=== PATIENT | male | born 1955 | race Caucasian/White ===

== ENCOUNTER 2017-02-20 10:39 | Inpatient (IN) | payer BC ==
[2017-02-20] MEDS ORDERED: Sodium Chloride 0.9% 1,000 ML IV ONE ×2 (10:57→12:52)
[2017-02-20] MEDS ORDERED: Acetaminophen 500 MG Tab PO ONE ×4 (10:57→20:15)
[2017-02-20] MEDS ORDERED: HYDROmorphone 1 MG/ML Syringe IVPUSH ONE (11:15)
[2017-02-20] MEDS ORDERED: Ondansetron 4 MG/2 ML SDV IVPUSH ONE (11:15)
--- NOTE | 2017-02-20 11:15 | EDM.PDOC ---
Addendum entered and electronically signed by Bennett Herbert PA 02/20/17 12:46 : please use ER note as admission H and P Original Note: ED HPI GENERAL MEDICAL PROBLEM - General Chief Complaint: General Stated Complaint: FEVERS Time Seen by Provider: 02/20/17 11:00 Source of Information: Reports: Patient History Limitations: Reports: No Limitations - History of Present Illness INITIAL COMMENTS - FREE TEXT/NARRATIVE: 61 YO WM presents to ER with fever x 2 days, and elevated blood sugar in the 400s. Pt reports these symptoms began yesterday. Pt denies any chest pain, shortness of breath, dysuria, nausea/vomiting, headache or neck pain. Pt complains of right shoulder pain secondary to a torn rotator cuff that he's scheduled to have surgery on 02/23/2017. Pt also complains of chronic mid back pain which he reports is secondary to spinal stenosis which was revealed from MRI 2 weeks ago. SaO2 in ER was 88% on RA Onset Date: 02/19/17 Duration: Day(s): (2) Location: Reports: Back, Upper Extremity, Right Quality: Reports: Ache Severity: Moderate Improves with: Reports: Rest Worsens with: Reports: Movement Associated Symptoms: Reports: Fever/Chills. Denies: Chest Pain, Cough, cough w sputum, Diaphoresis, Headaches, Nausea/Vomiting, Rash, Shortness of Breath, Syncope Right Shoulder Pain Score (Numeric/FACES): 10 - Related Data Allergies Allergy/AdvReac Type Severity Reaction Status Date / Time No Known Drug Allergies Allergy Other Verified 02/15/17 13:39 Home Meds: Home Meds Aspirin [Lo-Dose Aspirin EC] 81 mg PO DAILY 02/15/17 [History] Losartan Potassium 50 mg PO DAILY 02/15/17 [History] Sildenafil Citrate [Sildenafil] 50 mg PO ASDIRECTED 02/15/17 [History] atorvaSTATin [Lipitor] 40 mg PO BEDTIME 02/15/17 [History] metFORMIN [Glucophage XR] 1,000 mg PO BID 02/15/17 [History] Docusate Sodium 200 mg PO DAILY 02/20/17 [History] Hydrocodone/Acetaminophen [Hydrocodon-Acetaminoph 7.5-325] 1 each PO Q6H PRN [History] Multivitamin [Multiple Vitamins] 1 each PO DAILY 02/20/17 [History] ED ROS GENERAL - Review of Systems Review Of Systems: See Below Constitutional: Reports: Fever, Chills, Decreased Appetite HEENT: Reports: No Symptoms Respiratory: Reports: No Symptoms Cardiovascular: Reports: No Symptoms Endocrine: Reports: No Symptoms GI/Abdominal: Reports: No Symptoms : Reports: No Symptoms Musculoskeletal: Reports: Shoulder Pain, Back Pain Skin: Reports: No Symptoms Neurological: Reports: No Symptoms Psychiatric: Reports: No Symptoms Hematologic/Lymphatic: Reports: No Symptoms Immunologic: Reports: No Symptoms ED EXAM, GENERAL - Physical Exam Exam: See Below Exam Limited By: No Limitations General Appearance: Alert, WD/WN, No Apparent Distress Ears: Normal External Exam, Normal Canal, Hearing Grossly Normal, Normal TMs Nose: Normal Inspection, Normal Mucosa, No Blood Throat/Mouth: Normal Inspection, Normal Lips, Normal Teeth, Normal Gums, Normal Oropharynx, Normal Voice, No Airway Compromise Head: Atraumatic, Normocephalic Neck: Normal Inspection, Supple, Non-Tender, Full Range of Motion Respiratory/Chest: No Respiratory Distress, Lungs Clear, Normal Breath Sounds, No Accessory Muscle Use, Chest Non-Tender Cardiovascular: Normal Peripheral Pulses, Regular Rate, Rhythm, No Edema, No Gallop, No JVD, No Murmur, No Rub GI/Abdominal: Normal Bowel Sounds, Soft, Non-Tender, No Organomegaly, No Distention, No Abnormal Bruit, No Mass Back Exam: Muscle Spasm, Paraspinal Tenderness Extremities: Normal Inspection, Normal Range of Motion, Non-Tender, Normal Capillary Refill, No Pedal Edema Neurological: Alert, Oriented, CN II-XII Intact, Normal Cognition, Normal Gait, Normal Reflexes, No Motor/Sensory Deficits Psychiatric: Normal Affect, Normal Mood Course - Vital Signs Last Recorded V/S: Last Vital Signs Temp 39.6 C H 02/20/17 11:20 Pulse 109 H 02/20/17 10:59 Resp 18 02/20/17 10:59 BP 146/74 H 02/20/17 10:59 Pulse Ox 88 L 02/20/17 10:59 - Orders/Labs/Meds Orders: Active Orders 24 hr Category Date Time Status Blood Glucose Check, Bedside [RC] ONETIME Care 02/20/17 12:32 Active Chest 2V [CR] Stat Exams 02/20/17 10:55 Taken CULTURE BLOOD [BC] Stat Lab 02/20/17 10:47 Received CULTURE BLOOD [BC] Stat Lab 02/20/17 11:15 Received UA W/MICROSCOPIC [URIN] Stat Lab 02/20/17 10:57 Uncollected Blood Culture x2 Reflex Set [OM.PC] Stat Oth 02/20/17 10:57 Ordered Labs: Laboratory Tests 02/20/17 02/20/17 02/20/17 Range/Units 10:47 10:47 11:15 WBC 14.5 H (5.0-10.0) 10^3/uL RBC 3.51 L (4.50-6.00) 10^6/uL Hgb 10.5 L (13.0-17.0) g/dL Hct 30.7 L (40.0-52.0) % MCV 87.4 (82.0-92.0) fL MCH 29.9 (27.0-31.0) pg MCHC 34.2 (32.0-36.0) g/dL RDW 13.0 (11.5-14.5) % Plt Count 220 (150-300) 10^3/uL MPV 8.7 (7.4-10.4) fL Neut % (Auto) 93.3 H (50.0-70.0) % Lymph % (Auto) 2.7 L (20.0-40.0) % Linn % (Auto) 4.0 (2.0-8.0) % Eos % (Auto) 0.0 L (1.0-3.0) % Baso % (Auto) 0.0 (0.0-1.0) % Neut # (Auto) 13.5 H (2.5-7.0) 10^3/uL Lymph # (Auto) 0.4 L (1.0-4.0) 10^3/uL Linn # (Auto) 0.6 (0.1-0.8) 10^3/uL Eos # (Auto) 0.0 L (0.1-0.3) 10^3/uL Baso # (Auto) 0.0 (0.0-0.1) 10^3/uL VBG pH 7.44 H (7.31-7.41) VBG pCO2 31 L (41-51) mmHG VBG pO2 32 mmHG VBG HCO3 21 L (23-28) mmol/L VBG Total CO2 22 mmol/L VBG O2 Saturation 65 % VBG Base Excess -3 L ((-2)-3) mmol/L O2 Delivery Device Room air Sodium 121 L (136-145) mmol/L Potassium 4.7 (3.3-5.3) mmol/L Chloride 86 L* (98-115) mmol/L Carbon Dioxide 24.2 (21.0-32.0) mmol/L BUN 38 H (6-25) mg/dL Creatinine 1.44 H (0.51-1.17) mg/dL Est Cr Clr Drug Dosing 57.63 mL/min Estimated GFR (MDRD) 50 mL/min Glucose 476 H (70-110) mg/dL POC Glucose (74-106) mg/dl Lactic Acid (0.4-2.0) mmol/L Calcium 8.8 (8.7-10.3) mg/dL Total Bilirubin 1.2 H (0.2-1.0) mg/dL AST 142 H (15-37) U/L ALT 140 H (12-78) U/L Alkaline Phosphatase 131 H (46-116) IU/L Total Protein 8.0 (6.4-8.2) g/dL Albumin 2.51 L (3.00-4.80) g/dL 02/20/17 02/20/17 Range/Units 11:53 12:29 WBC (5.0-10.0) 10^3/uL RBC (4.50-6.00) 10^6/uL Hgb (13.0-17.0) g/dL Hct (40.0-52.0) % MCV (82.0-92.0) fL MCH (27.0-31.0) pg MCHC (32.0-36.0) g/dL RDW (11.5-14.5) % Plt Count (150-300) 10^3/uL MPV (7.4-10.4) fL Neut % (Auto) (50.0-70.0) % Lymph % (Auto) (20.0-40.0) % Linn % (Auto) (2.0-8.0) % Eos % (Auto) (1.0-3.0) % Baso % (Auto) (0.0-1.0) % Neut # (Auto) (2.5-7.0) 10^3/uL Lymph # (Auto) (1.0-4.0) 10^3/uL Linn # (Auto) (0.1-0.8) 10^3/uL Eos # (Auto) (0.1-0.3) 10^3/uL Baso # (Auto) (0.0-0.1) 10^3/uL VBG pH (7.31-7.41) VBG pCO2 (41-51) mmHG VBG pO2 mmHG VBG HCO3 (23-28) mmol/L VBG Total CO2 mmol/L VBG O2 Saturation % VBG Base Excess ((-2)-3) mmol/L O2 Delivery Device Sodium (136-145) mmol/L Potassium (3.3-5.3) mmol/L Chloride (98-115) mmol/L Carbon Dioxide (21.0-32.0) mmol/L BUN (6-25) mg/dL Creatinine (0.51-1.17) mg/dL Est Cr Clr Drug Dosing mL/min Estimated GFR (MDRD) mL/min Glucose (70-110) mg/dL POC Glucose 442 H (74-106) mg/dl Lactic Acid 2.5 H (0.4-2.0) mmol/L Calcium (8.7-10.3) mg/dL Total Bilirubin (0.2-1.0) mg/dL AST (15-37) U/L ALT (12-78) U/L Alkaline Phosphatase (46-116) IU/L Total Protein (6.4-8.2) g/dL Albumin (3.00-4.80) g/dL Meds: Medications Discontinued Medications Generic Name Dose Route Start Last Admin Trade Name Freq PRN Reason Stop Dose Admin Acetaminophen 1,000 mg 02/20/17 10:57 02/20/17 10:50 Tylenol Extra Strength PO 02/20/17 10:58 1,000 mg ONETIME ONE Administration Hydromorphone HCl 1 mg 02/20/17 11:15 02/20/17 11:40 Dilaudid IVPUSH 02/20/17 11:16 1 mg ONETIME ONE Administration Sodium Chloride 1,000 mls @ 999 mls/hr 02/20/17 10:57 02/20/17 10:50 Normal Saline IV 02/20/17 11:57 999 mls/hr .BOLUS ONE Administration Ondansetron HCl 4 mg 02/20/17 11:15 02/20/17 11:40 Zofran IVPUSH 02/20/17 11:16 4 mg ONETIME ONE Administration - Radiology Interpretation Free Text/Narrative:: CXR- Left lower lobe infiltrate Departure - Departure Time of Disposition: 12:44 Disposition: Admitted As Inpatient 64 Condition: Serious Clinical Impression: Hyperglycemia without ketosis, Hyponatremia, Hypochloremia Pneumonia Qualifiers: Pneumonia type: due to unspecified organism Laterality: left Lung location: lower lobe of lung Qualified Code(s): J18.1 - Lobar pneumonia, unspecified organism Sepsis Qualifiers: Sepsis type: sepsis due to unspecified organism Qualified Code(s): A41.9 - Sepsis, unspecified organism - Discharge Information - My Orders Last 24 Hours: My Active Orders 02/20/17 10:47 CULTURE BLOOD [BC] Stat 02/20/17 10:55 Chest 2V [CR] Stat 02/20/17 10:57 UA W/MICROSCOPIC [URIN] Stat Blood Culture x2 Reflex Set [OM.PC] Stat 02/20/17 11:15 CULTURE BLOOD [BC] Stat 02/20/17 12:32 Blood Glucose Check, Bedside [RC] ONETIME - Assessment/Plan Last 24 Hours: My Active Orders 02/20/17 10:47 CULTURE BLOOD [BC] Stat 02/20/17 10:55 Chest 2V [CR] Stat 02/20/17 10:57 UA W/MICROSCOPIC [URIN] Stat Blood Culture x2 Reflex Set [OM.PC] Stat 02/20/17 11:15 CULTURE BLOOD [BC] Stat 02/20/17 12:32 Blood Glucose Check, Bedside [RC] ONETIME Assessment:: 1. LLL pneumonia 2. elevated LFT 3.hyperosmolar hyperglycemia 4. early sepsis 5. hyponatremia 6. hypocholemia Plan: 1. discussed case with Dr Berman who will admit to her service 2. zosyn/vancomycin 3. sputum cultures 4. repeat lactic acid in am 5. cbc/cmp in am 6. updraft treatments 7. fluid hydration 8. insulin sliding scale
[2017-02-20 11:22] LABS: O2 DELIVERY DEVICE ROOM AIR
[2017-02-20 11:25] LABS: BASE EXCESS VENOUS -3 mmol/L ((-2)-3); BICARBONATE,VENOUS 21 mmol/L (23-28); O2 SATURATION VENOUS 65 %; PCO2 VENOUS 31 mmHG (41-51); PH,VENOUS 7.44 (7.31-7.41); PO2 VENOUS 32 mmHG
[2017-02-20] MEDS ORDERED: Sodium Chloride 0.9% 5 ML Syringe FLUSH PRN (12:48)
[2017-02-20] MEDS ORDERED: Albuterol/Ipratropium 3.0-0.5 MG/3 ML Neb Soln NEB PRN (12:48)
[2017-02-20] MEDS ORDERED: Ondansetron 4 MG/2 ML SDV IV PRN (12:48)
[2017-02-20] MEDS ORDERED: Acetaminophen 500 MG Tab PO PRN (12:52)
[2017-02-20] MEDS ORDERED: Piperacillin/Tazobactam 4.5 GM in Sodium Chloride 0.9% 100 ML IV SCH (13:00)
[2017-02-20] MEDS ORDERED: Sodium Chloride 0.9% 1,000 ML IV SCH (13:00)
[2017-02-20] MEDS ORDERED: Insulin Regular, Human 100 Units/ML 10 ML Vial SUBCUT ONE ×2 (14:30→21:55)
[2017-02-20] MEDS: Piperacillin/Tazobactam/Dext 3.375 GM in Premix Bag 1 BAG IV SCH ×3 (14:55→22:00)
[2017-02-20] MEDS: HYDROmorphone 2 MG/ML SDV IVPUSH PRN (17:23)
[2017-02-20] MEDS: Insulin Regular, Human 100 Units/ML 10 ML Vial SUBCUT SCH ×3 (18:30→21:45)
[2017-02-20] MEDS ORDERED: Insulin Regular, Human 100 Units/ML 10 ML Vial IVPUSH ONE (18:40)
[2017-02-20] MEDS ORDERED: Ibuprofen 600 MG Tab PO SCH (21:00)
[2017-02-20] MEDS: Ibuprofen 600 MG Tab PO SCH (21:02)
[2017-02-20] MEDS: Acetaminophen 500 MG Tab PO SCH (23:54)
[2017-02-20] MEDS: Sodium Chloride 0.9% 1,000 ML IV SCH (23:59)
[2017-02-21] MEDS: Piperacillin/Tazobactam/Dext 3.375 GM in Premix Bag 1 BAG IV SCH ×2 (02:50→08:56)
[2017-02-21] MEDS: Ibuprofen 600 MG Tab PO SCH ×3 (02:51→18:43)
[2017-02-21] MEDS ORDERED: Ibuprofen 600 MG Tab PO SCH (03:00)
[2017-02-21] MEDS ORDERED: Acetaminophen 500 MG Tab PO SCH ×2 (06:00)
[2017-02-21] MEDS: Acetaminophen 500 MG Tab PO SCH ×2 (06:38→11:50)
[2017-02-21] MEDS: Insulin Regular, Human 100 Units/ML 10 ML Vial SUBCUT SCH ×5 (07:50→22:55)
--- NOTE | 2017-02-21 09:04 | PCM.PN ---
- General Info Date of Service: 02/21/17 Admission Dx/Problem (Free Text): Pneumonia with sepsis. - Review of Systems Systems Review Comment:: Willie is seen today on inpatient rounds. He was admitted yesterday with LLL pneumonia with sepsis and hyperglycemia. He is known to be a diabetic. He started not feeling well on 02/19/17 with a fever of 102.5 at home. They contacted his PCP and she recommended he go in to the ER for evaluation. He was asymptomatic, largely, with the exception of some back and right shoulder pain and he has a known rotator cuff tear. He was actually supposed to have that repaired on 02/23/[address] Hunter at [facility]. While in the ER he was noted to have a temp of 102.5 with leukocytosis of 14.5 with a left shift. He had no cough but CXR was positive for LLL infiltrate. Blood cultures have been drawn and he has gram positive cocci growing in anaerobic and aerobic bottles both. He is in vancomycin and zosyn. His lactate in ER was noted to be 2.5 (ULN 2.0) but BP was stable and pulse was stable to it was felt he would be able to stay locally in the hospital rather than being transferred out. He wants to go home today stating "I"m fine". He has, however, noticed that he has some blistering lesions on his lower lip that just showed up. He has no pain with them. He has never had anything like that happen before. - Patient Data Vitals - Most Recent: Last Vital Signs Temp 96.9 F 02/21/17 07:00 Pulse 84 02/21/17 07:00 Resp 16 02/21/17 07:00 BP 114/73 02/21/17 07:00 Pulse Ox 94 L 02/21/17 07:45 Weight - Most Recent: 208 lb 9.6 oz I&O - Last 24 Hours: Intake & Output 02/20/17 02/21/17 02/21/17 22:59 06:59 14:59 Intake Total 2862 1284 Output Total 1400 400 Balance 1462 884 Lab Results Last 24 Hours: Laboratory Results - last 24 hr 02/20/17 02/20/17 02/20/17 Range/Units 14:21 16:19 18:10 WBC (5.0-10.0) 10^3/uL RBC (4.50-6.00) 10^6/uL Hgb (13.0-17.0) g/dL Hct (40.0-52.0) % MCV (82.0-92.0) fL MCH (27.0-31.0) pg MCHC (32.0-36.0) g/dL RDW (11.5-14.5) % Plt Count (150-300) 10^3/uL MPV (7.4-10.4) fL Neut % (Auto) (50.0-70.0) % Lymph % (Auto) (20.0-40.0) % [place] % (Auto) (2.0-8.0) % Eos % (Auto) (1.0-3.0) % Baso % (Auto) (0.0-1.0) % Neut # (Auto) (2.5-7.0) 10^3/uL Lymph # (Auto) (1.0-4.0) 10^3/uL [place] # (Auto) (0.1-0.8) 10^3/uL Eos # (Auto) (0.1-0.3) 10^3/uL Baso # (Auto) (0.0-0.1) 10^3/uL Sodium (136-145) mmol/L Potassium (3.3-5.3) mmol/L Chloride (98-115) mmol/L Carbon Dioxide (21.0-32.0) mmol/L BUN (6-25) mg/dL Creatinine (0.51-1.17) mg/dL Est Cr Clr Drug Dosing mL/min Estimated GFR (MDRD) mL/min Glucose (70-110) mg/dL POC Glucose 425 H 409 H 427 H (74-106) mg/dl Lactic Acid (0.4-2.0) mmol/L Calcium (8.7-10.3) mg/dL Total Bilirubin (0.2-1.0) mg/dL AST (15-37) U/L ALT (12-78) U/L Alkaline Phosphatase (46-116) IU/L Total Protein (6.4-8.2) g/dL Albumin (3.00-4.80) g/dL 02/20/17 02/20/17 02/20/17 Range/Units 19:49 21:07 23:53 WBC (5.0-10.0) 10^3/uL RBC (4.50-6.00) 10^6/uL Hgb (13.0-17.0) g/dL Hct (40.0-52.0) % MCV (82.0-92.0) fL MCH (27.0-31.0) pg MCHC (32.0-36.0) g/dL RDW (11.5-14.5) % Plt Count (150-300) 10^3/uL MPV (7.4-10.4) fL Neut % (Auto) (50.0-70.0) % Lymph % (Auto) (20.0-40.0) % Pinal % (Auto) (2.0-8.0) % Eos % (Auto) (1.0-3.0) % Baso % (Auto) (0.0-1.0) % Neut # (Auto) (2.5-7.0) 10^3/uL Lymph # (Auto) (1.0-4.0) 10^3/uL Pinal # (Auto) (0.1-0.8) 10^3/uL Eos # (Auto) (0.1-0.3) 10^3/uL Baso # (Auto) (0.0-0.1) 10^3/uL Sodium (136-145) mmol/L Potassium (3.3-5.3) mmol/L Chloride (98-115) mmol/L Carbon Dioxide (21.0-32.0) mmol/L BUN (6-25) mg/dL Creatinine (0.51-1.17) mg/dL Est Cr Clr Drug Dosing mL/min Estimated GFR (MDRD) mL/min Glucose (70-110) mg/dL POC Glucose 319 H 288 H 299 H (74-106) mg/dl Lactic Acid (0.4-2.0) mmol/L Calcium (8.7-10.3) mg/dL Total Bilirubin (0.2-1.0) mg/dL AST (15-37) U/L ALT (12-78) U/L Alkaline Phosphatase (46-116) IU/L Total Protein (6.4-8.2) g/dL Albumin (3.00-4.80) g/dL 02/21/17 02/21/17 02/21/17 Range/Units 06:37 07:27 07:27 WBC 9.6 (5.0-10.0) 10^3/uL RBC 3.12 L (4.50-6.00) 10^6/uL Hgb 9.5 L (13.0-17.0) g/dL Hct 27.6 L (40.0-52.0) % MCV 88.6 (82.0-92.0) fL MCH 30.5 (27.0-31.0) pg MCHC 34.4 (32.0-36.0) g/dL RDW 12.8 (11.5-14.5) % Plt Count 180 (150-300) 10^3/uL MPV 8.4 (7.4-10.4) fL Neut % (Auto) 90.8 H (50.0-70.0) % Lymph % (Auto) 4.6 L (20.0-40.0) % Pinal % (Auto) 3.5 (2.0-8.0) % Eos % (Auto) 0.3 L (1.0-3.0) % Baso % (Auto) 0.8 (0.0-1.0) % Neut # (Auto) 8.8 H (2.5-7.0) 10^3/uL Lymph # (Auto) 0.4 L (1.0-4.0) 10^3/uL Pinal # (Auto) 0.3 (0.1-0.8) 10^3/uL Eos # (Auto) 0.0 L (0.1-0.3) 10^3/uL Baso # (Auto) 0.1 (0.0-0.1) 10^3/uL Sodium 128 L (136-145) mmol/L Potassium 3.9 (3.3-5.3) mmol/L Chloride 95 L (98-115) mmol/L Carbon Dioxide 22.2 (21.0-32.0) mmol/L BUN 40 H (6-25) mg/dL Creatinine 1.41 H (0.51-1.17) mg/dL Est Cr Clr Drug Dosing 58.86 mL/min Estimated GFR (MDRD) 51 mL/min Glucose 333 H (70-110) mg/dL POC Glucose 307 H (74-106) mg/dl Lactic Acid (0.4-2.0) mmol/L Calcium 8.0 L (8.7-10.3) mg/dL Total Bilirubin 1.0 (0.2-1.0) mg/dL AST 132 H (15-37) U/L ALT 131 H (12-78) U/L Alkaline Phosphatase 115 (46-116) IU/L Total Protein 6.3 L (6.4-8.2) g/dL Albumin 1.80 L (3.00-4.80) g/dL 02/21/17 Range/Units 07:27 WBC (5.0-10.0) 10^3/uL RBC (4.50-6.00) 10^6/uL Hgb (13.0-17.0) g/dL Hct (40.0-52.0) % MCV (82.0-92.0) fL MCH (27.0-31.0) pg MCHC (32.0-36.0) g/dL RDW (11.5-14.5) % Plt Count (150-300) 10^3/uL MPV (7.4-10.4) fL Neut % (Auto) (50.0-70.0) % Lymph % (Auto) (20.0-40.0) % Pinal % (Auto) (2.0-8.0) % Eos % (Auto) (1.0-3.0) % Baso % (Auto) (0.0-1.0) % Neut # (Auto) (2.5-7.0) 10^3/uL Lymph # (Auto) (1.0-4.0) 10^3/uL Pinal # (Auto) (0.1-0.8) 10^3/uL Eos # (Auto) (0.1-0.3) 10^3/uL Baso # (Auto) (0.0-0.1) 10^3/uL Sodium (136-145) mmol/L Potassium (3.3-5.3) mmol/L Chloride (98-115) mmol/L Carbon Dioxide (21.0-32.0) mmol/L BUN (6-25) mg/dL Creatinine (0.51-1.17) mg/dL Est Cr Clr Drug Dosing mL/min Estimated GFR (MDRD) mL/min Glucose (70-110) mg/dL POC Glucose (74-106) mg/dl Lactic Acid 1.6 (0.4-2.0) mmol/L Calcium (8.7-10.3) mg/dL Total Bilirubin (0.2-1.0) mg/dL AST (15-37) U/L ALT (12-78) U/L Alkaline Phosphatase (46-116) IU/L Total Protein (6.4-8.2) g/dL Albumin (3.00-4.80) g/dL Med Orders - Current: Current Medications Acetaminophen (Tylenol Extra Strength) 1,000 mg PO Q6H [facility] Last Admin: 02/21/17 06:38 Dose: 1,000 mg Albuterol/Ipratropium (Duoneb 3.0-0.5 Mg/3 Ml) 3 ml NEB Q4H PRN PRN Reason: Shortness Of Breath/wheezing Hydromorphone HCl (Dilaudid) 0.5 mg IVPUSH Q2H PRN PRN Reason: Pain (severe 7-10) Last Admin: 02/20/17 17:23 Dose: 0.5 mg Sodium Chloride (Normal Saline) 1,000 mls @ 125 mls/hr IV ASDIRECTED [facility] Last Admin: 02/20/17 23:59 Dose: 150 mls/hr Piperacillin/Tazobactam/ (Dextrose 3.375 gm/ Premix) 50 mls @ 100 mls/hr IV Q6H [facility] Last Admin: 02/21/17 08:56 Dose: 100 mls/hr Vancomycin HCl 1.25 gm/ Sodium (Chloride) 250 mls @ 166.667 mls/hr IV Q12H [facility] Last Admin: 02/21/17 03:49 Dose: 166.667 mls/hr Ibuprofen (Motrin) 600 mg PO Q6H [facility] Last Admin: 02/21/17 08:56 Dose: 600 mg Insulin Human Regular (Novolin R) 0 unit SUBCUT 0730,1200,1800,2100 TIM PRN Reason: Protocol Last Admin: 02/21/17 07:50 Dose: 4 unit Ondansetron HCl (Zofran) 4 mg IV Q6H PRN PRN Reason: Nausea/Vomiting Sodium Chloride (Syrex Flush) 5 ml FLUSH Q8HR PRN PRN Reason: Keep Vein Open Valacyclovir HCl (Valtrex) 1,000 mg PO BID [facility] Stop: 02/21/17 23:59 Vancomycin HCl (Pharmacy To Dose - Vancomycin) 1 dose .XX ASDIRECTED [facility] Discontinued Medications Acetaminophen (Tylenol Extra Strength) 1,000 mg PO ONETIME ONE Stop: 02/20/17 10:58 Last Admin: 02/20/17 10:50 Dose: 1,000 mg Acetaminophen (Tylenol Extra Strength) 1,000 mg PO Q6H PRN PRN Reason: Fever Last Admin: 02/20/17 18:20 Dose: 1,000 mg Acetaminophen (Tylenol Extra Strength) 1,000 mg PO ONETIME ONE Stop: 02/20/17 18:41 Last Admin: 02/20/17 20:25 Dose: Not Given Hydromorphone HCl (Dilaudid) 1 mg IVPUSH ONETIME ONE Stop: 02/20/17 11:16 Last Admin: 02/20/17 11:40 Dose: 1 mg Sodium Chloride (Normal Saline) 1,000 mls @ 999 mls/hr IV .BOLUS ONE Stop: 02/20/17 11:57 Last Admin: 02/20/17 10:50 Dose: 999 mls/hr Sodium Chloride (Normal Saline) 1,000 mls @ 125 mls/hr IV ASDIRECTED [facility] Stop: 02/20/17 18:30 Last Admin: 02/20/17 14:25 Dose: 125 mls/hr Sodium Chloride (Normal Saline) 1,000 mls @ 999 mls/hr IV .BOLUS ONE Stop: 02/20/17 13:52 Last Admin: 02/20/17 13:15 Dose: 999 mls/hr Vancomycin HCl 1 gm/ Sodium (Chloride) 250 mls @ 167 mls/hr IV Q24H [facility] Last Admin: 02/20/17 16:09 Dose: 167 mls/hr Piperacillin/Tazobactam/ (Dextrose 3.375 gm/ Premix) 50 mls @ 100 mls/hr IV Q6H [facility] Last Admin: 02/20/17 21:13 Dose: Not Given Ibuprofen (Motrin) 600 mg PO TID@0900,1500,2100 TIM Insulin Human Regular (Novolin R) 1 unit SUBCUT WITHMEALSANDBED TIM PRN Reason: Protocol Stop: 02/21/17 00:43 Last Admin: 02/21/17 00:00 Dose: 3 unit Insulin Human Regular (Novolin R) 12 unit SUBCUT ONETIME ONE PRN Reason: Protocol Stop: 02/20/17 14:31 Last Admin: 02/20/17 14:50 Dose: 12 unit Insulin Human Regular (Novolin R) 12 unit IVPUSH ONETIME ONE PRN Reason: Protocol Stop: 02/20/17 18:41 Last Admin: 02/20/17 20:25 Dose: Not Given Insulin Human Regular (Novolin R) 4 unit SUBCUT ONETIME ONE PRN Reason: Protocol Stop: 02/20/17 21:56 Last Admin: 02/20/17 22:18 Dose: 3 unit Ondansetron HCl (Zofran) 4 mg IVPUSH ONETIME ONE Stop: 02/20/17 11:16 Last Admin: 02/20/17 11:40 Dose: 4 mg - Exam General: Alert, Oriented, Cooperative HEENT: Other (He has clustered blistering lesions on his left lower lip, on the lip and below it as well.) Lungs: Normal Respiratory Effort, Rales (LLL) Cardiovascular: Regular Rate, Regular Rhythm, No Murmurs GI/Abdominal Exam: Normal Bowel Sounds, Soft, Non-Tender, No Organomegaly Extremities: Normal Inspection, No Pedal Edema - Problem List & Annotations (1) Diabetes mellitus SNOMED Code(s): 79636638 Code(s): E11.9 - TYPE 2 DIABETES MELLITUS WITHOUT COMPLICATIONS Status: Acute Current Visit: Yes (2) Hyperglycemia without ketosis SNOMED Code(s): 58576963 Code(s): R73.9 - HYPERGLYCEMIA, UNSPECIFIED Status: Acute Current Visit: Yes (3) Hypochloremia SNOMED Code(s): 06530860 Code(s): E87.8 - OTH DISORDERS OF ELECTROLYTE AND FLUID BALANCE, NEC Status : Acute Current Visit: Yes (4) Hyponatremia SNOMED Code(s): 23662124 Code(s): E87.1 - HYPO-OSMOLALITY AND HYPONATREMIA Status: Acute Current Visit: Yes (5) Pneumonia SNOMED Code(s): 682781375 Code(s): J18.9 - PNEUMONIA, UNSPECIFIED ORGANISM Status: Acute Current Visit: Yes Qualifiers: Pneumonia type: due to unspecified organism Laterality: left Lung location: lower lobe of lung Qualified Code(s): J18.1 - Lobar pneumonia, unspecified organism (6) Sepsis SNOMED Code(s): 69937640 Code(s): A41.9 - SEPSIS, UNSPECIFIED ORGANISM Status: Acute Current Visit : Yes Qualifiers: Sepsis type: sepsis due to unspecified organism Qualified Code(s): A41.9 - Sepsis, unspecified organism (7) Cold sore SNOMED Code(s): 5816996 Code(s): B00.1 - HERPESVIRAL VESICULAR DERMATITIS Status: Acute Current Visit: Yes - Problem List Review Problem List Initiated/Reviewed/Updated: Yes - My Orders Last 24 Hours: My Active Orders 02/21/17 09:30 valACYclovir [Valtrex] 1,000 mg PO BID - Plan Plan:: Continue on broad spectrum antibiotics of vancomycin and zosyn until blood culture results are available. Decrease IVF's to 125 cc per hour from 150 cc per hour. Start valacyclovir 1,000 mg PO BID x 2 doses today for the herpes. Continue with insulin per sliding scale for his BG's. Sodium and chloride improved in the past 24 hours with IVF's and will continue on those. Daily labs of CBC, CMP with lactic acid repeated tomorrow and if stable will not need to recheck.
[2017-02-21] MEDS: Sodium Chloride 0.9% 1,000 ML IV SCH ×2 (09:09→17:46)
[2017-02-21] MEDS ORDERED: valACYclovir 500 MG Tab PO SCH (09:30)
[2017-02-21] MEDS: valACYclovir 500 MG Tab PO SCH ×2 (11:42→21:24)
[2017-02-21] MEDS ORDERED: Ibuprofen 600 MG Tab PO PRN (15:12)
[2017-02-21] MEDS: Piperacillin/Tazobactam 3.375 GM in Sodium Chloride 0.9% 50 ML IV SCH ×2 (17:56→22:48)
[2017-02-21] MEDS ORDERED: Acetaminophen 500 MG Tab PO PRN (18:00)
[2017-02-21] MEDS ORDERED: Acetaminophen 650 MG Tab.ER PO PRN (20:26)
[2017-02-21] MEDS ORDERED: Insulin Regular, Human 100 Units/ML 10 ML Vial SUBCUT ONE (21:18)
[2017-02-21] MEDS: oxyCODONE 5 MG Tab PO PRN (21:24)
[2017-02-22] MEDS: Insulin Regular, Human 100 Units/ML 10 ML Vial SUBCUT SCH ×6 (01:00→23:22)
[2017-02-22] MEDS: Sodium Chloride 0.9% 1,000 ML IV SCH ×2 (04:34→18:06)
[2017-02-22] MEDS: Piperacillin/Tazobactam 3.375 GM in Sodium Chloride 0.9% 50 ML IV SCH ×2 (04:34→11:11)
[2017-02-22] MEDS: Levothyroxine 75 MCG Tab PO SCH (06:09)
[2017-02-22 08:05] LABS: CHLORIDE,CL 100 mmol/L (98-115); SODIUM,NA 132 mmol/L (136-145)
[2017-02-22] MEDS: oxyCODONE 5 MG Tab PO PRN ×2 (08:12→16:23)
[2017-02-22] MEDS: Docusate Sodium 100 MG Cap PO SCH (08:16)
[2017-02-22] MEDS: Losartan 50 MG Tab PO SCH (08:16)
[2017-02-22] MEDS: Aspirin 81 MG Tab.EC PO SCH (08:16)
[2017-02-22] MEDS: Multivitamins with Minerals/Iron/Folic Acid/Lycopene Tab PO SCH (08:16)
[2017-02-22] MEDS: valACYclovir 500 MG Tab PO SCH (08:17)
--- NOTE | 2017-02-22 08:46 | PCM.PN ---
- General Info Date of Service: 02/22/17 Admission Dx/Problem (Free Text): Pneumonia with sepsis. - Review of Systems Systems Review Comment:: Willie is seen today on inpatient rounds. He was admitted on 02/20/17 with fever , LLL pneumonia, acute renal insufficiency with transaminitis, hyperglycemia, sepsis, hyponatremia and hypochloremia. Yesterday he had an episode of increased confusion and was seeing double in the afternoon so a CT head was obtained which was largely unremarkable. He states that resolved yesterday, today he feels a little dizzy. No N/V. The nurse is present this morning and notes his right arm is swollen and has some pitting edema but he has no erythema. He does have a torn rotator cuff in his right shoulder and also has the IV in his right hand but there is no evidence of infiltration. He feels constipated today and received colace x 2 this morning and drank 2 cups of prune juice. No urinary issues. He continues to have low back pain with radiation to his left leg. They are questioning if he could get a "cortisone shot" to help with the pain. He does have oxycodone PO and dilaudid IV PRN. He received oxycodone last evening before bed and again this morning. He has to request this, however, and he did not realize that, he thought he had something scheduled. - Patient Data Vitals - Most Recent: Last Vital Signs Temp 98.5 F 02/22/17 06:29 Pulse 88 02/22/17 06:45 Resp 18 02/22/17 06:45 BP 113/62 02/22/17 08:16 Pulse Ox 96 02/22/17 06:45 Weight - Most Recent: 208 lb 9.6 oz I&O - Last 24 Hours: Intake & Output 02/21/17 02/22/17 02/22/17 22:59 06:59 14:59 Intake Total 2330 1255 Balance 2330 1255 Lab Results Last 24 Hours: Laboratory Results - last 24 hr 02/21/17 02/21/17 02/21/17 Range/Units 11:49 18:00 20:53 WBC (5.0-10.0) 10^3/uL RBC (4.50-6.00) 10^6/uL Hgb (13.0-17.0) g/dL Hct (40.0-52.0) % MCV (82.0-92.0) fL MCH (27.0-31.0) pg MCHC (32.0-36.0) g/dL RDW (11.5-14.5) % Plt Count (150-300) 10^3/uL MPV (7.4-10.4) fL Neut % (Auto) (50.0-70.0) % Lymph % (Auto) (20.0-40.0) % [place] % (Auto) (2.0-8.0) % Eos % (Auto) (1.0-3.0) % Baso % (Auto) (0.0-1.0) % Neut # (Auto) (2.5-7.0) 10^3/uL Lymph # (Auto) (1.0-4.0) 10^3/uL [place] # (Auto) (0.1-0.8) 10^3/uL Eos # (Auto) (0.1-0.3) 10^3/uL Baso # (Auto) (0.0-0.1) 10^3/uL Sodium (136-145) mmol/L Potassium (3.3-5.3) mmol/L Chloride (98-115) mmol/L Carbon Dioxide (21.0-32.0) mmol/L BUN (6-25) mg/dL Creatinine (0.51-1.17) mg/dL Est Cr Clr Drug Dosing mL/min Estimated GFR (MDRD) mL/min Glucose (70-110) mg/dL POC Glucose 392 H 382 H 416 H (74-106) mg/dl Lactic Acid (0.4-2.0) mmol/L Calcium (8.7-10.3) mg/dL Total Bilirubin (0.2-1.0) mg/dL AST (15-37) U/L ALT (12-78) U/L Alkaline Phosphatase (46-116) IU/L Total Protein (6.4-8.2) g/dL Albumin (3.00-4.80) g/dL 02/21/17 02/22/17 02/22/17 Range/Units 22:41 04:35 06:22 WBC (5.0-10.0) 10^3/uL RBC (4.50-6.00) 10^6/uL Hgb (13.0-17.0) g/dL Hct (40.0-52.0) % MCV (82.0-92.0) fL MCH (27.0-31.0) pg MCHC (32.0-36.0) g/dL RDW (11.5-14.5) % Plt Count (150-300) 10^3/uL MPV (7.4-10.4) fL Neut % (Auto) (50.0-70.0) % Lymph % (Auto) (20.0-40.0) % [place] % (Auto) (2.0-8.0) % Eos % (Auto) (1.0-3.0) % Baso % (Auto) (0.0-1.0) % Neut # (Auto) (2.5-7.0) 10^3/uL Lymph # (Auto) (1.0-4.0) 10^3/uL [place] # (Auto) (0.1-0.8) 10^3/uL Eos # (Auto) (0.1-0.3) 10^3/uL Baso # (Auto) (0.0-0.1) 10^3/uL Sodium (136-145) mmol/L Potassium (3.3-5.3) mmol/L Chloride (98-115) mmol/L Carbon Dioxide (21.0-32.0) mmol/L BUN (6-25) mg/dL Creatinine (0.51-1.17) mg/dL Est Cr Clr Drug Dosing mL/min Estimated GFR (MDRD) mL/min Glucose (70-110) mg/dL POC Glucose 386 H 265 H 273 H (74-106) mg/dl Lactic Acid (0.4-2.0) mmol/L Calcium (8.7-10.3) mg/dL Total Bilirubin (0.2-1.0) mg/dL AST (15-37) U/L ALT (12-78) U/L Alkaline Phosphatase (46-116) IU/L Total Protein (6.4-8.2) g/dL Albumin (3.00-4.80) g/dL 0802/22/17 02/22/17 Range/Units 07:20 07:20 07:20 WBC 9.1 (5.0-10.0) 10^3/uL RBC 3.37 L (4.50-6.00) 10^6/uL Hgb 9.9 L (13.0-17.0) g/dL Hct 29.4 L (40.0-52.0) % MCV 87.2 (82.0-92.0) fL MCH 29.4 (27.0-31.0) pg MCHC 33.7 (32.0-36.0) g/dL RDW 12.9 (11.5-14.5) % Plt Count 188 (150-300) 10^3/uL MPV 9.0 (7.4-10.4) fL Neut % (Auto) 90.0 H (50.0-70.0) % Lymph % (Auto) 5.0 L (20.0-40.0) % [place] % (Auto) 3.5 (2.0-8.0) % Eos % (Auto) 1.0 (1.0-3.0) % Baso % (Auto) 0.5 (0.0-1.0) % Neut # (Auto) 8.2 H (2.5-7.0) 10^3/uL Lymph # (Auto) 0.5 L (1.0-4.0) 10^3/uL [place] # (Auto) 0.3 (0.1-0.8) 10^3/uL Eos # (Auto) 0.1 (0.1-0.3) 10^3/uL Baso # (Auto) 0.0 (0.0-0.1) 10^3/uL Sodium 132 L (136-145) mmol/L Potassium 4.0 (3.3-5.3) mmol/L Chloride 100 (98-115) mmol/L Carbon Dioxide 21.8 (21.0-32.0) mmol/L BUN 30 H (6-25) mg/dL Creatinine 1.03 (0.51-1.17) mg/dL Est Cr Clr Drug Dosing 80.57 mL/min Estimated GFR (MDRD) > 60 mL/min Glucose 283 H (70-110) mg/dL POC Glucose (74-106) mg/dl Lactic Acid 1.6 (0.4-2.0) mmol/L Calcium 8.4 L (8.7-10.3) mg/dL Total Bilirubin 0.8 (0.2-1.0) mg/dL AST 88 H (15-37) U/L ALT 116 H (12-78) U/L Alkaline Phosphatase 138 H (46-116) IU/L Total Protein 6.4 (6.4-8.2) g/dL Albumin 1.74 L (3.00-4.80) g/dL Med Orders - Current: Current Medications Acetaminophen (Tylenol Arthritis Pain) 650 mg PO Q8H PRN PRN Reason: Fever Albuterol/Ipratropium (Duoneb 3.0-0.5 Mg/3 Ml) 3 ml NEB Q4H PRN PRN Reason: Shortness Of Breath/wheezing Aspirin (Halfprin) 81 mg PO DAILY [facility] Last Admin: 02/22/17 08:16 Dose: 81 mg Docusate Sodium (Colace) 200 mg PO DAILY [facility] Last Admin: 02/22/17 08:16 Dose: 200 mg Hydromorphone HCl (Dilaudid) 0.5 mg IVPUSH Q2H PRN PRN Reason: Pain (severe 7-10) Last Admin: 02/20/17 17:23 Dose: 0.5 mg Sodium Chloride (Normal Saline) 1,000 mls @ 125 mls/hr IV ASDIRECTED [facility] Last Admin: 02/22/17 04:34 Dose: 125 mls/hr Piperacillin Sod/Tazobactam (Sod 3.375 gm/ Sodium Chloride) 65 mls @ 130 mls/ hr IV Q6HR [facility] Last Admin: 02/22/17 04:34 Dose: 130 mls/hr Vancomycin HCl 1.25 gm/ Sodium (Chloride) 275 mls @ 137 mls/hr IV Q12H [facility] Last Admin: 02/22/17 06:08 Dose: 137 mls/hr Insulin Human Regular (Novolin R) 0 unit SUBCUT WITHMEALSANDBED [facility] PRN Reason: Protocol Last Admin: 02/22/17 08:13 Dose: 6 unit Levothyroxine Sodium (Levothyroxine) 150 mcg PO ACBREAKFAST [facility] Last Admin: 02/22/17 06:09 Dose: 150 mcg Losartan Potassium (Cozaar) 50 mg PO DAILY [facility] Last Admin: 02/22/17 08:16 Dose: 50 mg Multivitamins/Minerals (Centrum) 1 tab PO DAILY [facility] Last Admin: 02/22/17 08:16 Dose: 1 tab Ondansetron HCl (Zofran) 4 mg IV Q6H PRN PRN Reason: Nausea/Vomiting Oxycodone HCl (Oxycodone) 5 mg PO Q6H PRN PRN Reason: Pain Last Admin: 02/22/17 08:12 Dose: 5 mg Sodium Chloride (Syrex Flush) 5 ml FLUSH Q8HR PRN PRN Reason: Keep Vein Open Valacyclovir HCl (Valtrex) 1,000 mg PO BID [facility] Last Admin: 02/22/17 08:17 Dose: 1,000 mg Vancomycin HCl (Pharmacy To Dose - Vancomycin) 1 dose .XX ASDIRECTED [facility] Discontinued Medications Acetaminophen (Tylenol Extra Strength) 1,000 mg PO ONETIME ONE Stop: 02/20/17 10:58 Last Admin: 02/20/17 10:50 Dose: 1,000 mg Acetaminophen (Tylenol Extra Strength) 1,000 mg PO Q6H PRN PRN Reason: Fever Last Admin: 02/20/17 18:20 Dose: 1,000 mg Acetaminophen (Tylenol Extra Strength) 1,000 mg PO ONETIME ONE Stop: 02/20/17 18:41 Last Admin: 02/20/17 20:25 Dose: Not Given Acetaminophen (Tylenol Extra Strength) 1,000 mg PO Q6H [facility] Last Admin: 02/21/17 11:50 Dose: 1,000 mg Acetaminophen (Tylenol Extra Strength) 1,000 mg PO Q6H PRN PRN Reason: fever pain Hydromorphone HCl (Dilaudid) 1 mg IVPUSH ONETIME ONE Stop: 02/20/17 11:16 Last Admin: 02/20/17 11:40 Dose: 1 mg Sodium Chloride (Normal Saline) 1,000 mls @ 999 mls/hr IV .BOLUS ONE Stop: 02/20/17 11:57 Last Admin: 02/20/17 10:50 Dose: 999 mls/hr Sodium Chloride (Normal Saline) 1,000 mls @ 125 mls/hr IV ASDIRECTED [facility] Stop: 02/20/17 18:30 Last Admin: 02/20/17 14:25 Dose: 125 mls/hr Sodium Chloride (Normal Saline) 1,000 mls @ 999 mls/hr IV .BOLUS ONE Stop: 02/20/17 13:52 Last Admin: 02/20/17 13:15 Dose: 999 mls/hr Vancomycin HCl 1 gm/ Sodium (Chloride) 250 mls @ 167 mls/hr IV Q24H [facility] Last Admin: 02/20/17 16:09 Dose: 167 mls/hr Piperacillin/Tazobactam/ (Dextrose 3.375 gm/ Premix) 50 mls @ 100 mls/hr IV Q6H [facility] Last Admin: 02/20/17 21:13 Dose: Not Given Piperacillin/Tazobactam/ (Dextrose 3.375 gm/ Premix) 50 mls @ 100 mls/hr IV Q6H [facility] Last Admin: 02/21/17 08:56 Dose: 100 mls/hr Vancomycin HCl 1.25 gm/ Sodium (Chloride) 250 mls @ 166.667 mls/hr IV Q12H [facility] Last Admin: 02/21/17 03:49 Dose: 166.667 mls/hr Ibuprofen (Motrin) 600 mg PO TID@0900,1500,2100 TIM Ibuprofen (Motrin) 600 mg PO Q6H [facility] Last Admin: 02/21/17 18:43 Dose: Not Given Ibuprofen (Motrin) 600 mg PO Q6H PRN PRN Reason: Pain Insulin Human Regular (Novolin R) 1 unit SUBCUT WITHMEALSANDBED [facility] PRN Reason: Protocol Stop: 02/21/17 00:43 Last Admin: 02/21/17 00:00 Dose: 3 unit Insulin Human Regular (Novolin R) 12 unit SUBCUT ONETIME ONE PRN Reason: Protocol Stop: 02/20/17 14:31 Last Admin: 02/20/17 14:50 Dose: 12 unit Insulin Human Regular (Novolin R) 12 unit IVPUSH ONETIME ONE PRN Reason: Protocol Stop: 02/20/17 18:41 Last Admin: 02/20/17 20:25 Dose: Not Given Insulin Human Regular (Novolin R) 4 unit SUBCUT ONETIME ONE PRN Reason: Protocol Stop: 02/20/17 21:56 Last Admin: 02/20/17 22:18 Dose: 3 unit Insulin Human Regular (Novolin R) 0 unit SUBCUT 0730,1200,1800,2100 TIM PRN Reason: Protocol Last Admin: 02/22/17 01:00 Dose: Not Given Insulin Human Regular (Novolin R) 10 unit SUBCUT ONETIME ONE PRN Reason: Protocol Stop: 02/21/17 21:19 Last Admin: 02/21/17 21:30 Dose: 10 unit Ondansetron HCl (Zofran) 4 mg IVPUSH ONETIME ONE Stop: 02/20/17 11:16 Last Admin: 02/20/17 11:40 Dose: 4 mg Valacyclovir HCl (Valtrex) 1,000 mg PO BID TIM Stop: 02/21/17 23:59 Last Admin: 02/21/17 18:43 Dose: Not Given - Exam General: Alert, Oriented, Cooperative, No Acute Distress Lungs: Rales (Left lung base) Cardiovascular: Regular Rate, Regular Rhythm, No Murmurs GI/Abdominal Exam: Normal Bowel Sounds, Soft Extremities: No Pedal Edema, Other (He does have pitting edema to his right arm , really the whole thing, without erythema.) Neurological: No New Focal Deficit Psy/Mental Status: Alert, Normal Affect - Problem List & Annotations (1) Diabetes mellitus SNOMED Code(s): 72351516 Code(s): E11.9 - TYPE 2 DIABETES MELLITUS WITHOUT COMPLICATIONS Status: Acute Current Visit: Yes (2) Hyperglycemia without ketosis SNOMED Code(s): 11158555 Code(s): R73.9 - HYPERGLYCEMIA, UNSPECIFIED Status: Acute Current Visit: Yes (3) Hypochloremia SNOMED Code(s): 49058541 Code(s): E87.8 - OTH DISORDERS OF ELECTROLYTE AND FLUID BALANCE, NEC Status : Acute Current Visit: Yes (4) Hyponatremia SNOMED Code(s): 30356055 Code(s): E87.1 - HYPO-OSMOLALITY AND HYPONATREMIA Status: Acute Current Visit: Yes (5) Pneumonia SNOMED Code(s): 812205672 Code(s): J18.9 - PNEUMONIA, UNSPECIFIED ORGANISM Status: Acute Current Visit: Yes Qualifiers: Pneumonia type: due to unspecified organism Laterality: left Lung location: lower lobe of lung Qualified Code(s): J18.1 - Lobar pneumonia, unspecified organism (6) Sepsis SNOMED Code(s): 71889074 Code(s): A41.9 - SEPSIS, UNSPECIFIED ORGANISM Status: Acute Current Visit : Yes Qualifiers: Sepsis type: sepsis due to unspecified organism Qualified Code(s): A41.9 - Sepsis, unspecified organism (7) Cold sore SNOMED Code(s): 4690749 Code(s): B00.1 - HERPESVIRAL VESICULAR DERMATITIS Status: Acute Current Visit: Yes - Problem List Review Problem List Initiated/Reviewed/Updated: Yes - My Orders Last 24 Hours: My Active Orders 02/21/17 12:00 valACYclovir [Valtrex] 1,000 mg PO BID 02/21/17 16:00 Piperacillin/Tazobactam [Zosyn] 3.375 gm Sodium Chloride 0.9% [Normal Saline] 50 ml IV Q6HR 02/21/17 20:25 oxyCODONE 5 mg PO Q6H PRN 02/21/17 20:26 Acetaminophen [Tylenol Arthritis Pain] 650 mg PO Q8H PRN 02/21/17 22:00 Insulin Regular, Human [NovoLIN R] See Protocol SUBCUT WITHMEALSANDBED 02/21/17 22:25 Blood Glucose Check, Bedside [RC] ONETIME 02/22/17 07:00 Levothyroxine 150 mcg PO ACBREAKFAST 02/22/17 07:14 RT Incentive Spirometry [RC] Q2HWA 02/22/17 09:00 Aspirin [Halfprin] 81 mg PO DAILY Docusate Sodium [Colace] 200 mg PO DAILY FA/Lycopene/Lut/MV,Ca,Iron,Min [Centrum] 1 tab PO DAILY Losartan [Cozaar] 50 mg PO DAILY 02/23/17 05:11 CBC WITH AUTO DIFF [HEME] AM COMPREHENSIVE METABOLIC PN,CMP [CHEM] AM 02/24/17 05:11 CBC WITH AUTO DIFF [HEME] AM COMPREHENSIVE METABOLIC PN,CMP [CHEM] AM 02/25/17 05:11 CBC WITH AUTO DIFF [HEME] AM COMPREHENSIVE METABOLIC PN,CMP [CHEM] AM 02/26/17 05:11 CBC WITH AUTO DIFF [HEME] AM COMPREHENSIVE METABOLIC PN,CMP [CHEM] AM - Assessment Assessment:: LLL pneumonia with sepsis. Clinical picture improving. Afebrile. WBC normalized. Acute renal insufficiency. This is improving, creatinine back to normal, BUN trending down. Hyponatremia. This is nearly normal, sodium 132 today. Low chloride. This has resolved. Uncontrolled DM. Sugars still high. Anemia of unclear etiology. Stable hemoglobin. Hypothyroidism. Hyperlipidemia. Transaminitis, improving slowly. Rotator cuff tear, right. Low back pain with radiculopathy to the left leg. Constipation. - Plan Plan:: LLL pneumonia with sepsis. Clinical picture improving. Afebrile. WBC normalized. Continue with antibiotics and daily labs. Awaiting blood culture results. Acute renal insufficiency. This is improving, creatinine back to normal, BUN trending down. Will continue with IVF's at 125 cc per hour. Hyponatremia. This is nearly normal, sodium 132 today. Continue with IVF's, daily labs. Low chloride. This has resolved. Uncontrolled DM. Sugars still high. Last evening I increased his sliding scale insulin from low dose protocol to medium protocol. Sugars improved but still running high. Metformin in hold due to acute renal insufficiency. Can consider restarting in the next day or two. Anemia of unclear etiology. Stable hemoglobin. Daily labs. Hypothyroidism. Home levothyroxine dose. Hyperlipidemia. Holding statin due to transaminitis. Transaminitis, improving slowly. Holding statin. Limit acetaminophen products. I changed his hydrocodone/APAP to oxycodone to minimize acetaminophen intake. Rotator cuff tear, right. Oxycodone for pain control PO, dilaudid PRN IV for pain not controlled by oxycodone. Low back pain with radiculopathy to the left leg. Counseled family that with positive blood cultures it is not kay to do an epidural injection at this time. Can consider steroids orally to help with pain, also has narcotic pain medication available. Constipation. PRN meds as given today. Can add Miralax if necessary.
[2017-02-22] MEDS ORDERED: Levofloxacin/Dextrose 5%-Water 50 ML IV SCH (11:30)
[2017-02-22] MEDS: HYDROmorphone 2 MG/ML SDV IVPUSH PRN (11:54)
[2017-02-22] MEDS ORDERED: Levofloxacin/Dextrose 5%-Water 100 ML IV SCH (12:30)
[2017-02-22] MEDS ORDERED: Enoxaparin 30 MG/0.3 ML Syringe SUBCUT SCH (14:00)
[2017-02-22] MEDS: Lactulose Soln 10 GM/15 ML 30 ML UD Cup PO SCH ×2 (17:14→20:58)
[2017-02-23] MEDS: Sodium Chloride 0.9% 1,000 ML IV SCH ×2 (01:49→10:03)
[2017-02-23] MEDS: Levothyroxine 75 MCG Tab PO SCH ×2 (05:33→06:30)
[2017-02-23 08:04] LABS: CHLORIDE,CL 100 mmol/L (98-115); SODIUM,NA 132 mmol/L (136-145)
[2017-02-23] MEDS: Insulin Regular, Human 100 Units/ML 10 ML Vial SUBCUT SCH ×2 (08:48→11:29)
[2017-02-23] MEDS: Aspirin 81 MG Tab.EC PO SCH (08:50)
[2017-02-23] MEDS: Docusate Sodium 100 MG Cap PO SCH (08:50)
[2017-02-23] MEDS: Multivitamins with Minerals/Iron/Folic Acid/Lycopene Tab PO SCH (08:50)
[2017-02-23] MEDS: Losartan 50 MG Tab PO SCH (08:50)
[2017-02-23] MEDS: Lactulose Soln 10 GM/15 ML 30 ML UD Cup PO SCH (08:50)
[2017-02-23] MEDS: oxyCODONE 5 MG Tab PO PRN (11:31)
[2017-02-23 11:32] VITALS: BP 144/82
--- NOTE | 2017-02-24 09:10 | DISCH ---
HOSPITAL COURSE: This is a 61-year-old patient who has been an inpatient at the [facility] since 02/20/2017. He was admitted through the emergency room by Bennett Herbert PA-C to Dr. Lary Maurice' Service. At that time, he had had a fever for the past couple of days and elevated blood sugars in the 400s. He also had some mild mental confusion as well. He was initially treated with Zosyn and vancomycin until blood cultures came back with Staph aureus. He was switched to Levaquin yesterday and has received one dose of the Levaquin. He also has significant findings of elevated liver function tests, possibly related to illness, but he was also on a statin medication, the statin medication was discontinued. He did have some renal insufficiency which has improved and normalized. Glucose readings have been elevated, and he has been given insulin per sliding scale. He was previously on metformin but due to the renal insufficiency, the metformin was discontinued. He was hyponatremic as well as hypochloremic, and these have improved as well. He has been kept on IV fluids. The biggest concern clinically with this patient is the mental confusion. This has not improved and has waxed and waned somewhat but appears to be getting worse when he is confused. Example of his confusion includes seeing sand coming out of a closet door. He looked out of the window today to report that he thought that it was snowing outside. He also felt that there was a sprinkler system running when it was not. Two days ago, he had some visual disturbances in the terms of double vision. A CAT scan of his head was done which was negative for any acute changes. Yesterday, an ammonia level was drawn and found to be elevated at 45. Lactulose was given and this has normalized to 16. His mental confusion, however, has not improved. He and his have been questioned pointedly about alcohol use. The patient's reports that the patient has not had any significant alcohol consumption in the last two months. He does use alcohol socially however not excessively. Just for interest of a complete recent past history, two weeks ago the patient saw me in the clinic with right shoulder pain and back pain. Fortunately, we were able to obtain plain films as well as MRIs of both the right shoulder and the lumbar spine the same day. He does have some spinal canal stenosis. Plan was for epidural steroid injections at a later date. He does have a complete infraspinatus tear of the right shoulder. He has had an orthopedic consult and was originally scheduled for surgery today which obviously has been postponed now due to this illness. Also of note, he had a preoperative physical for his surgery which was initially scheduled for today, on Tuesday at [place] and [place] and was found to have hyperglycemia and also mild anemia of undetermined etiology. He has had an iron workup which is still pending. LABORATORY DATA: Significant lab data: Initial white blood cell count was 14.5, this improved to 9.6 on the second hospital day, 9.1 on third hospital day, and today his white count was 10.7. Left shift has improved. Hemoglobin was originally 11.2 last week at the previously reported preoperative appointment, it was 10.5 on admission, and now is 8.9. Iron studies have been ordered with results pending. Admission sodium was 121, this has improved to 132. Chloride on admission was 86 and has improved to 100 which is normal. BUN and creatinine initially were 38 and 1.44 respectively with a GFR of 50 on admission. These have slowly trended downward to normal with a BUN and creatinine of 19 and 0.75 respectively, today GFR greater than 60. His ammonia level yesterday was 45 and this has improved to 16 which is within normal range after two doses of lactulose. Liver enzymes have improved. Total bilirubin was initially elevated at 1.2, this is normalized at 0.7. AST, ALT, and alkaline phosphatase have slowly trended downward with the alkaline phosphatase going from 131 to 137 which is actually an upward trend. He was found to have left lower lobe pneumonia, improved on chest x-ray. Details of his IV antibiotics are previously in the note. PHYSICAL EXAM ON DISCHARGE: VITAL SIGNS: His temperature is 98.8, pulse 92, respirations 20, blood pressure 164/83, O2 saturation is 92% on room air. SKIN: Warm and dry to touch. CARDIAC: Reveals S1, S2 to be normal. Rate and rhythm are regular. No murmur, click, or gallop is auscultated. LUNGS: Clear. There are no rales, wheezes, or rhonchi auscultated. ABDOMEN: Soft, nontender. Bowel sounds present in all four quadrants. EXTREMITIES: There is no pedal edema. He does have some right upper extremity edema, question etiology. NEUROLOGIC: He is not oriented to time or place. He often gets his location confused. He does obviously know his name. Cranial nerves II through XII are intact. Sensory, motor, and cerebellar function appear to be normal as well. Deep tendon reflexes are 2+. IMPRESSION: 1. Left lower lobe pneumonia. This does seem to be improving. He was initially treated with vancomycin and Zosyn. These were both discontinued yesterday after blood cultures showed Methicillin-sensitive Staphylococcus aureus. He is now on Levaquin. 2. Mental confusion. This is the largest concern for this patient. As he does seem to be improving clinically, his mental confusion appears to be worsening. West Nile was tested, and the results are still pending. There is concern for encephalitis/meningitis in a patient that appears to be becoming more mentally confused. This could be a hospital delirium but given the patient's age of 61, this would be unlikely. 3. Elevated liver function tests, these do seem to be improving. 4. Renal insufficiency, this has normalized. 5. Elevated ammonia level, question from elevated liver function tests, this is improved after one dose of lactulose. 6. Right infraspinatus tear of the right shoulder with right upper extremity edema. We did do an ultrasound of the right upper extremity which was negative for any deep vein thrombosis. 7. Spinal canal stenosis. He may benefit from further intervention once he is discharged home and improved clinically. I did discuss the case with [facility] in [place] and was given the recommendation that the patient have a lumbar puncture. They were able to complete that at [facility] in [place]; however, they do not have a Neurology consultation service there. I then spoke with hospitalist through [facility] in [place] who recommended the patient be transferred to [place] by ambulance for further work up. He will need a lumbar puncture. He will need a transesophageal echocardiogram and most likely an MRI of the brain. 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 There was concern for encephalitis or meningitis. He will be transferred for direct admission and accepted by at [facility] in [place]. I have discussed all of my findings and the recommendations from other facilities with Dr. Lary Maurice who agrees with the patient's transfer. /[id number]/MODL MTDD
== END 2017-02-23 12:10 | DRG 720 ==
LOC: KA.ED 10:39 → KA.MS 12:47
PROVIDERS: ADMIT Physician Assistant Medical; ATTEND Internal Medicine
DX: A41.9 Sepsis, unspecified organism (principal); J15.211 Pneumonia due to Methicillin susceptible Staphylococcus aureus; E13.10 Other specified diabetes mellitus with ketoacidosis without coma; Z79.84 Long term (current) use of oral hypoglycemic drugs; E87.1 Hypo-osmolality and hyponatremia; E87.8 Other disorders of electrolyte and fluid balance, not elsewhere classified; B00.1 Herpesviral vesicular dermatitis; N17.9 Acute kidney failure, unspecified; Z79.82 Long term (current) use of aspirin; Z79.899 Other long term (current) drug therapy; E78.5 Hyperlipidemia, unspecified; E03.9 Hypothyroidism, unspecified; D64.9 Anemia, unspecified; M75.101 Unspecified rotator cuff tear or rupture of right shoulder, not specified as traumatic; M54.5 Low back pain; M54.10 Radiculopathy, site unspecified; K59.00 Constipation, unspecified; R41.0 Disorientation, unspecified; E72.20 Disorder of urea cycle metabolism, unspecified; M48.00 Spinal stenosis, site unspecified
CPT/HCPCS: 36415; 70450; 71020; 80053; 80076; 81001; 82140; 82728; 82803; 82962; 83540; 83550; 83605; 85025; 86788; 87040; 87077; 87086; 87186; 93971; 96361; 96374; 96375; 99284; A9270-GY; J1170; J1650; J1817-GY; J1956; J2405; J2543; J3370; J7030; J7050

== ENCOUNTER 2018-01-16 07:04 | Day surgery (SDC) | payer BC ==
[~2018-01-16 07:04] MED LIST: EPINEPHrine 1:10,000 1 MG/10 ML Syringe ONE; Midazolam 1 MG/ML 2 ML SDV ONE; Propofol 200 MG/20 ML SDV ONE; Sodium Chloride 0.9% 1,000 ML IV SCH; Sodium Chloride 0.9% 5 ML Syringe FLUSH PRN
[2018-01-16] MEDS ORDERED: Propofol 200 MG/20 ML SDV IV ONE (08:13)
[2018-01-16] MEDS ORDERED: Midazolam 1 MG/ML 2 ML SDV IV ONE (08:13)
--- NOTE | 2018-01-16 09:49 | PCM.PRNOTE ---
- Free Text/Narrative Note: PROCEDURE PERFORMED: Colonoscopy PRE-PROCEDURE DIAGNOSIS/INDICATION FOR PROCEDURE: Chronic diarrhea, +FIT CONSENT: Informed consent was obtained prior to the procedure after discussion of the risks (including pain, bleeding, infection, perforation, missed polyps, adverse reaction to anesthesia, cardiovascular event), benefits and alternatives and expected outcomes. The patient expressed understanding and wished to proceed. Verbal consent given and consent form signed. PROCEDURAL PAUSE: Completed SEDATION: Per anesthesia DESCRIPTION OF PROCEDURE: Patient was placed in the left lateral decubitus position. After adequate sedation and anesthetic was administered, a rectal exam was performed revealing normal sphincter tone and no masses, but enlarged prostate of approximately 50g without nodules. A lubricated Olympus Video Colonoscope was inserted into the rectum and air insufflation was performed. The colonoscope was advanced through the rectum, sigmoid, descending, transverse, and ascending colon without difficulties. The cecum was reached and the ileocecal valve as well as the appendiceal orifice were identified and pictorially documented. Ileocecal valve was briefly intubated and normal appearing tissue noted. After adequate visualization of the cecum, the scope was withdrawn, giving 360-degree views of the colonic mucosa and retroflexion was performed in the rectum with the following findings noted: Ileocecal valve: Normal Cecum: Normal Ascending colon: Normal; Random biopsies were taken to assess for microscopic colitis Hepatic flexure: Normal Transverse colon: Normal; Random biopsies were taken to assess for microscopic colitis Splenic flexure: Normal Descending colon: Normal; Random biopsies were taken to assess for microscopic colitis Sigmoid colon: 5mm polyp at 15cm removed completely with hot snare and subsequent adequate hemostasis noted; Random biopsies were taken to assess for microscopic colitis Rectum: Normal The scope was straightened, air suction performed, and the scope withdrawn without complication. Preparation adequacy fair. IMPRESSION: Colonoscopy performed revealing one 5mm polyp at 15cm, pathology now pending. Enlarged prostate also noted. PLAN: Will contact the patient when pathology results received with recommendation for repeat colonoscopy and further work-up. Encourage supportive cares for diarrhea while awaiting results.
[2018-01-16 11:02] VITALS: BP 168/87
== END 2018-01-16 10:35 | disposition home or self-care (01) ==
LOC: KA.SDS 07:04
PROVIDERS: ATTEND Family Medicine
DX: K52.9 Noninfective gastroenteritis and colitis, unspecified (principal); R19.5 Other fecal abnormalities; D12.5 Benign neoplasm of sigmoid colon; I10 Essential (primary) hypertension; J32.9 Chronic sinusitis, unspecified; E03.9 Hypothyroidism, unspecified; E11.9 Type 2 diabetes mellitus without complications; E78.00 Pure hypercholesterolemia, unspecified; N40.0 Benign prostatic hyperplasia without lower urinary tract symptoms; N52.2 Drug-induced erectile dysfunction; M17.31 Unilateral post-traumatic osteoarthritis, right knee; Z79.82 Long term (current) use of aspirin; Z79.84 Long term (current) use of oral hypoglycemic drugs; Z79.899 Other long term (current) drug therapy
CPT/HCPCS: 82962; J2250; J2704; J7030

== ENCOUNTER 2020-02-09 16:10 | Emergency (ER) | payer MEDICARE, BC ==
[2020-02-09 16:32] VITALS: BP 166/74; PULSE 74
[2020-02-09] MEDS ORDERED: Lidocaine 1% with EPINEPHrine 1:100,000 20 ML MDV ONE (16:41)
[2020-02-09] MEDS ORDERED: Bacitracin/Neomycin/Polymyxin B Oint 0.9 GM U/D Packet ONE (16:45)
[2020-02-09] MEDS: Lidocaine 1% with EPINEPHrine 1:100,000 20 ML MDV INJECT ONE (16:50)
[2020-02-09] MEDS: Bacitracin/Neomycin/Polymyxin B Oint 0.9 GM U/D Packet TOP ONE (16:55)
--- NOTE | 2020-02-09 17:01 | EDM.PDOC ---
ED HPI GENERAL MEDICAL PROBLEM - General Chief Complaint: Upper Extremity Injury/Pain Stated Complaint: RIGHT HAND LACERATION Time Seen by Provider: 02/09/20 16:37 Source of Information: Reports: Patient, Significant Other History Limitations: Reports: No Limitations - History of Present Illness INITIAL COMMENTS - FREE TEXT/NARRATIVE: Patient presents with laceration of dorsal right hand that occurred a couple hours ago. 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 No numbness or motor deficit. Tetanus was updated one year ago he says. - Related Data Allergies Allergy/AdvReac Type Severity Reaction Status Date / Time No Known Drug Allergies Allergy Other Verified 02/09/20 16:32 Home Meds: Home Meds Losartan Potassium 75 mg PO DAILY 02/15/17 [History] Sildenafil Citrate 50 mg PO DAILY PRN 02/15/17 [History] atorvaSTATin [Lipitor] 40 mg PO DAILY 02/15/17 [History] Levothyroxine 175 mcg PO ACBREAKFAST 02/21/17 [History] metFORMIN [Glucophage] 1,000 mg PO BIDMEALS 02/21/17 [History] Past Medical History HEENT History: Reports: Impaired Vision Other HEENT History: reading glasses only Cardiovascular History: Reports: High Cholesterol, Hypertension Gastrointestinal History: Reports: Colon Polyp Musculoskeletal History: Reports: Back Pain, Chronic Neurological History: Reports: None Psychiatric History: Reports: None Endocrine/Metabolic History: Reports: Diabetes, Type II Dermatologic History: Reports: None - Past Surgical History HEENT Surgical History: Reports: Oral Surgery, Tonsillectomy Cardiovascular Surgical History: Reports: None GI Surgical History: Reports: Appendectomy, Colonoscopy, Polypectomy Endocrine Surgical History: Reports: None Dermatological Surgical History: Reports: None Social & Family History - Family History Family Medical History: Noncontributory - Tobacco Use Smoking Status *Q: Never Smoker - Caffeine Use Caffeine Use: Reports: Coffee, Soda, Tea - Recreational Drug Use Recreational Drug Use: No Review of Systems - Review of Systems Review Of Systems: See Below Constitutional: Denies: Chills, Fever, Weakness Eyes: Reports: No Symptoms Ears: Reports: No Symptoms Nose: Reports: No Symptoms Mouth/Throat: Reports: No Symptoms Respiratory: Denies: Shortness of Breath, Cough Cardiovascular: Denies: Chest Pain, Syncope GI/Abdominal: Denies: Abdominal Pain, Diarrhea, Nausea, Vomiting Musculoskeletal: Denies: Neck Pain, Shoulder Pain, Arm Pain, Back Pain Skin: Denies: Cyanosis, Jaundice, Mottled, Pallor, Diaphoresis Neurological: Denies: Confusion, Dizziness, Headache, Numbness, Trouble Speaking, Difficulty Walking Psychiatric: Denies: Confusion ED EXAM, GENERAL - Physical Exam Exam: See Below Exam Limited By: No Limitations General Appearance: Alert, WD/WN, No Apparent Distress Eye Exam: Bilateral Eye: EOMI, Normal Inspection, PERRL Ears: Normal External Exam, Hearing Grossly Normal Nose: Normal Inspection, No Blood Throat/Mouth: Normal Inspection, Normal Voice, No Airway Compromise Head: Atraumatic, Normocephalic Neck: Normal Inspection, Full Range of Motion Respiratory/Chest: No Respiratory Distress, Lungs Clear, Normal Breath Sounds, No Accessory Muscle Use Cardiovascular: Regular Rate, Rhythm, No Murmur Back Exam: Normal Inspection, Full Range of Motion Extremities: Normal Range of Motion, Non-Tender, Normal Capillary Refill, Other (1.5 cm laceration of middle dorsal right hand without evidence of tendon, nerve or vessel involvement. Resisted finger extension and full AROM is intact. Distal CMS intact. ) Neurological: Alert, Oriented, Normal Cognition, No Motor/Sensory Deficits Psychiatric: Normal Affect, Normal Mood Skin Exam: Warm, Dry, Intact, Normal Color, No Rash ED TRAUMA EXTREMITY PROCEDURES - Laceration/Wound Repair Right Dorsal Hand Lac/Wound Length In cm: 1.5 Appearance: Subcutaneous, Linear, Clean Distal NVT: Neuro & Vascular Intact, No Tendon Injury Anesthetic Type: Local Local Anesthesia - Lidocaine (Xylocaine): 1% with EPI Local Anesthetic Volume: 1cc Skin Prep: Chlorhexidine (Hibiciens) (20 minutes soak) Exploration/Debridement/Repair: Wound Explored, No Foreign Material Found Closed With: Sutures Suture Size: 5-0 # of Sutures: 5 Suture Type: Nylon, Interrupted, Simple Sterile Dressing Applied: Nurse Tetanus Status Addressed: Yes Complications: No Course - Vital Signs Last Recorded V/S: Last Vital Signs Temp 96.9 F 02/09/20 16:29 Pulse 74 02/09/20 16:29 Resp 18 02/09/20 16:29 BP 166/74 H 02/09/20 16:29 Pulse Ox 98 02/09/20 16:29 - Orders/Labs/Meds Meds: Medications Discontinued Medications Generic Name Dose Route Start Last Admin Trade Name Louise PRN Reason Stop Dose Admin Lidocaine/Epinephrine Confirm 02/09/20 16:41 Xylocaine 1% With Epinephrine 1:100,000 Administered 02/09/20 16:42 Dose 20 ml .ROUTE .STK-MED ONE Neomycin/Polymyxin/Bacitracin Confirm 02/09/20 16:45 Triple Antibiotic Oint Administered 02/09/20 16:46 Dose 1 each .ROUTE .STK-MED ONE - Re-Assessments/Exams Free Text/Narrative Re-Assessment/Exam: 02/09/20 17:01 Discussed findings, expectations and treatment plan with patient and his . Sterile technique was used throughout procedure and patient tolerated it well. Discharged to home in stable condition. Departure - Departure Time of Disposition: 16:56 Disposition: Home, Self-Care 01 Condition: Good Clinical Impression: Laceration of right hand without complication, excluding fingers Qualifiers: Encounter type: initial encounter Qualified Code(s): S61.411A - Laceration without foreign body of right hand, initial encounter - Discharge Information Instructions: Sutured Wound Care, [id number] Referrals: Rebecca Nazario MD [Primary Care Provider] - Additional Instructions: Keep wound clean and dry except for showering or washing hands under fresh running water. Use topical antibiotic ointment or petroleum jelly 1-2x/day and sterile bandage. Follow up with your PCP in 10 days for suture removal. Recheck sooner if any problems or sign of infection. Sepsis Event Note (ED) - Evaluation Sepsis Screening Result: No Definite Risk - Focused Exam Vital Signs: Vital Signs Temp Pulse Resp BP Pulse Ox 02/09/20 16:29 96.9 F 74 18 166/74 H 98
== END 2020-02-09 17:10 | disposition home or self-care (01) ==
LOC: KA.ED 16:10
DX: S61.411A Laceration without foreign body of right hand, initial encounter (principal); I10 Essential (primary) hypertension; E78.00 Pure hypercholesterolemia, unspecified; E11.9 Type 2 diabetes mellitus without complications; Z90.49 Acquired absence of other specified parts of digestive tract; Z98.890 Other specified postprocedural states; Z79.84 Long term (current) use of oral hypoglycemic drugs; Z79.899 Other long term (current) drug therapy; W25.XXXA Contact with sharp glass, initial encounter
CPT/HCPCS: 12001; 99282-25; 99283

== ENCOUNTER 2020-12-01 22:22 | Emergency (ER) | payer MEDICARE, BC ==
--- NOTE | 2020-12-01 23:01 | EDM.PDOC ---
ED HPI GENERAL MEDICAL PROBLEM - General Chief Complaint: General Stated Complaint: LACERATION Time Seen by Provider: 12/01/20 22:35 Source of Information: Reports: Patient History Limitations: Reports: No Limitations - History of Present Illness INITIAL COMMENTS - FREE TEXT/NARRATIVE: 65 YO WM PRESENTS TO ER COMPLAINING OF LACERATION TO BRIDGE OF NOSE WHICH OCCURRED THIS EVENING. PT REPORTS HE WAS TAKING OUT THE TRASH WHEN THE LID TO THE RECYCLING BIN STRUCK HIM ACROSS THE BRIDGE OF HIS NOSE. PT DENIES EPISTASIS OR NASAL BONE PAIN. PT WITH A 2CM HORIZONTAL LACERATION TO HIS NOSE. PT DENIES LOSS OF CONSCIOUSNESS, HEADACHE OR ANY OTHER INJURIES. PT CAME TO ER FOR SUTURES/WOUND CARE. Onset: Today Onset Date: 12/01/20 Duration: Hour(s): (1) Location: Reports: Face Quality: Reports: Ache Severity: Mild Improves with: Reports: None Worsens with: Reports: None Associated Symptoms: Reports: No Other Symptoms - Related Data Allergies Allergy/AdvReac Type Severity Reaction Status Date / Time No Known Drug Allergies Allergy Other Verified 02/09/20 16:32 Home Meds: Home Meds Losartan Potassium 75 mg PO DAILY 02/15/17 [History] Sildenafil Citrate 50 mg PO DAILY PRN 02/15/17 [History] atorvaSTATin [Lipitor] 40 mg PO DAILY 02/15/17 [History] Levothyroxine 175 mcg PO ACBREAKFAST 02/21/17 [History] metFORMIN [Glucophage] 1,000 mg PO BIDMEALS 02/21/17 [History] Past Medical History HEENT History: Reports: Impaired Vision Other HEENT History: reading glasses only Cardiovascular History: Reports: High Cholesterol, Hypertension Gastrointestinal History: Reports: Colon Polyp Musculoskeletal History: Reports: Back Pain, Chronic Neurological History: Reports: None Psychiatric History: Reports: None Endocrine/Metabolic History: Reports: Diabetes, Type II Dermatologic History: Reports: None - Past Surgical History HEENT Surgical History: Reports: Oral Surgery, Tonsillectomy Cardiovascular Surgical History: Reports: None GI Surgical History: Reports: Appendectomy, Colonoscopy, Polypectomy Endocrine Surgical History: Reports: None Dermatological Surgical History: Reports: None Social & Family History - Family History Family Medical History: No Pertinent Family History - Caffeine Use Caffeine Use: Reports: Coffee, Soda, Tea ED ROS GENERAL - Review of Systems Review Of Systems: See Below Constitutional: Reports: No Symptoms HEENT: Reports: No Symptoms Respiratory: Reports: No Symptoms Cardiovascular: Reports: No Symptoms Endocrine: Reports: No Symptoms GI/Abdominal: Reports: No Symptoms Musculoskeletal: Reports: No Symptoms Skin: Reports: Wound (2CM HORIZONTAL LACERATION TO BRIDGE OF NOSE) Neurological: Reports: No Symptoms ED EXAM, SKIN/RASH Exam: See Below Exam Limited By: No Limitations General Appearance: Alert, WD/WN, No Apparent Distress Head: Atraumatic, Normocephalic Neck: Normal Inspection, Supple, Non-Tender, Full Range of Motion Respiratory/Chest: No Respiratory Distress, Lungs Clear, Normal Breath Sounds, No Accessory Muscle Use, Chest Non-Tender Cardiovascular: Normal Peripheral Pulses, Regular Rate, Rhythm, No Edema, No Gallop, No JVD, No Murmur, No Rub GI/Abdominal: Normal Bowel Sounds, Soft, Non-Tender, No Organomegaly, No Distention, No Abnormal Bruit, No Mass Back Exam: Normal Inspection, Full Range of Motion, NT Extremities: Normal Inspection, Normal Range of Motion, Non-Tender, No Pedal Edema, Normal Capillary Refill Neurological: Alert, Oriented, CN II-XII Intact, Normal Cognition, Normal Gait, Normal Reflexes, No Motor/Sensory Deficits Psychiatric: Normal Affect, Normal Mood Skin: Wound/Incision (2CM HORIZONTAL LACERATION TO BRIDGE OF NOSE) Location, Skin: Face ED SKIN PROCEDURES - Laceration/Wound Repair Face Appearance: Superficial Local Anesthetic Volume: 3cc Skin Prep: Chlorhexidine (Hibiciens), Saline Closed with: Sutures Lac/Wound length In cm: 2 Suture Size: 5-0 # of Sutures: 3 Sterile Dressing Applied: None Tetanus Status Addressed: Yes Complications: No Course - Orders/Labs/Meds Meds: Medications Discontinued Medications Generic Name Dose Route Start Last Admin Trade Name Louise PRN Reason Stop Dose Admin Lidocaine HCl Confirm 12/01/20 23:11 Lidocaine 1% 20 Ml Mdv Administered 12/01/20 23:12 Dose 20 ml .ROUTE .STK-MED ONE Departure - Departure Time of Disposition: 23:26 Disposition: Home, Self-Care 01 Condition: Good Clinical Impression: Laceration of nose Qualifiers: Encounter type: initial encounter Qualified Code(s): S01.21XA - Laceration without foreign body of nose, initial encounter - Discharge Information Instructions: Facial Laceration Referrals: Rebecca Nazario MD [Primary Care Provider] - Forms: ED Department Discharge Additional Instructions: 1. DISCHARGE HOME 2. WOUND CARE INSTRUCTIONS GIVEN 3. SUTURE REMOVAL 5-7 DAYS 4. FOLLOW UP WITH PCP NEEDED FOR SUTURE REMOVAL 5. RETURN TO ER FOR WORSENING SYMPTOMS - Assessment/Plan Assessment:: 1. LACERATION TO BRIDGE OF NOSE Plan: 1. DISCHARGE HOME 2. WOUND CARE INSTRUCTIONS GIVEN 3. SUTURE REMOVAL 5-7 DAYS 4. FOLLOW UP WITH PCP NEEDED FOR SUTURE REMOVAL 5. RETURN TO ER FOR WORSENING SYMPTOMS
[2020-12-01] MEDS ORDERED: Lidocaine 1% 20 ML MDV ONE (23:11)
[2020-12-01] MEDS ORDERED: Lidocaine 1% 20 ML MDV INJECT ONE (23:30)
[2020-12-02 00:46] VITALS: BP 142/75; PULSE 71
== END 2020-12-01 23:30 | disposition home or self-care (01) ==
LOC: KA.ED 22:22
DX: S01.21XA Laceration without foreign body of nose, initial encounter (principal); E78.00 Pure hypercholesterolemia, unspecified; I10 Essential (primary) hypertension; E11.9 Type 2 diabetes mellitus without complications; Z79.84 Long term (current) use of oral hypoglycemic drugs; Z79.899 Other long term (current) drug therapy; W22.8XXA Striking against or struck by other objects, initial encounter
CPT/HCPCS: 12011; 99282-25; 99283

== ENCOUNTER 2023-03-15 07:01 | Day surgery (SDC) | payer BC, MEDICARE ==
[~2023-03-15 07:01] MED LIST changes: -EPINEPHrine 1:10,000 1 MG/10 ML Syringe ONE; -Midazolam 1 MG/ML 2 ML SDV ONE; -Propofol 200 MG/20 ML SDV ONE; +Sodium Chloride 0.9% 10 ML Syringe FLUSH PRN; -Sodium Chloride 0.9% 5 ML Syringe FLUSH PRN
[2023-03-15] MEDS ORDERED: Propofol 200 MG/20 ML SDV IV ONE (07:02)
[2023-03-15] MEDS ORDERED: ePHEDrine 50 MG/ML SDV IV ONE (07:02)
[2023-03-15] MEDS ORDERED: Propofol 200 MG/20 ML SDV ONE ×2 (07:20→08:39)
== END 2023-03-15 10:05 | disposition home or self-care (01) ==
LOC: KA.SDS 07:01 → MERGE 08:00 → KA.SDS 10:05
PROVIDERS: ATTEND Family Medicine
DX: Z12.11 Encounter for screening for malignant neoplasm of colon (principal); D12.5 Benign neoplasm of sigmoid colon; K57.30 Diverticulosis of large intestine without perforation or abscess without bleeding; K64.8 Other hemorrhoids; I10 Essential (primary) hypertension; C61 Malignant neoplasm of prostate; E11.9 Type 2 diabetes mellitus without complications; E78.00 Pure hypercholesterolemia, unspecified; E03.9 Hypothyroidism, unspecified; D64.9 Anemia, unspecified; E80.6 Other disorders of bilirubin metabolism; G93.9 Disorder of brain, unspecified; E66.01 Morbid (severe) obesity due to excess calories; M47.812 Spondylosis without myelopathy or radiculopathy, cervical region; R51.9 Headache, unspecified; Z90.79 Acquired absence of other genital organ(s); Z79.890 Hormone replacement therapy; Z79.899 Other long term (current) drug therapy; Z68.27 Body mass index [BMI] 27.0-27.9, adult
CPT/HCPCS: 00811; 88305; J2704; J3490; J7030